=== PATIENT | female | born 1975 | race Two or more races ===

== ENCOUNTER → 2016-10-21 | Outpatient (REF) | payer OTHER ==
[~2016-10-21] MED LIST: /DULO30CA PO; /ESOM40CA PO; ACET50TA PO; ANUS2.5C2 TOP; ATIV1TAB10 PO; BACITAB3 PO; CELE-19 PO; DOCU10CA PO; DOCU10ELUD PO; FERR325T3 PO; FOLI1TAB2 PO; IBUP800T OR; IBUP80TA PO; LYRI150C PO; MACROBID PO; MAG-OX PO; MOM30SS PO; NEUR600T PO; NUPE1OIN2 TOP; OXAZ10CA PO; OXYC10TA12 PO; OXYIR PO; PAXI20TA3 PO; PERC5TAB8 PO; PRENTAB74 PO; PROM25TA PO; PROT1TAB2 PO; SIME180C PO; SUCR1TA PO; TYLE325T5 PO; VITA100T60 PO; VITAPRTA PO; ZOFR20TA PO; ZOFR4SOL PO; [UNRECOGNIZED DRUG - CODE] PO; elavil PO; multivitamin PO
== END ==
LOC: M SMT 17:15
PROVIDERS: ATTEND Nurse Practitioner Women's Health
DX: R30.0 Dysuria (principal)

== ENCOUNTER → 2016-10-29 | Outpatient (REF) | payer OTHER | LOC: M SMT 16:59 | PROVIDERS: ATTEND Nurse Practitioner Women's Health | DX: R30.0 Dysuria (principal) ==

== ENCOUNTER → 2017-01-18 | Outpatient (CLI) | payer OTHER ==
[~2017-01-18] MED LIST changes: +BACITAB PO; -BACITAB3 PO; +BACT800T5 PO; -CELE-19 PO; +CELE1CAP4 PO; +CIPR-249 PO; -FOLI1TAB2 PO; +FOLI1TAB4 PO; +IBUP-1114 PO; +NORCOTAB PO; -OXAZ10CA PO; +OXAZ10CA3 PO; +OXYC1TAB23 PO; +ZOFR4TAB3 PO
[2017-01-18 18:34] LABS: ANION GAP 3 MEQ/L (8-16); BLOOD UREA NITROGEN 11 MG/DL (7-18); CARBON DIOXIDE LEVEL 29 MEQ/L (21-32); CHLORIDE LEVEL 107 MEQ/L (98-107); CREATININE FOR GFR 0.74 MG/DL (0.55-1.02); GLOMERULAR FILTRATION RATE > 60.0 (>58); GLUCOSE, FASTING 86 MG/DL (70-105); POTASSIUM SERUM 4.7 MEQ/L (3.5-5.1); SODIUM LEVEL 139 MEQ/L (136-145)
[2017-01-18 18:43] LABS: CONTROL LINE UCG INT CTR LINE PRESENT
[2017-01-18 18:50] LABS: MEAN CORPUSCULAR HEMOGLOBIN 28.2 pg (27.0-33.0); MEAN CORPUSCULAR HGB CONC 31.5 g/dl (32.0-36.5); MEAN CORPUSCULAR VOLUME 89.4 fl (80.0-96.0); RED CELL DISTRIBUTION WIDTH 13.9 % (11.5-14.5); WHITE BLOOD COUNT 9.8 K/mm3 (4.0-10.0)
== END ==
LOC: M SMT 15:01
PROVIDERS: ATTEND Specialist
DX: Z01.818 Encounter for other preprocedural examination (principal); R30.0 Dysuria; N30.10 Interstitial cystitis (chronic) without hematuria

== ENCOUNTER 2017-01-29 06:07 | Day surgery (SDC) | payer OTHER ==
[~2017-01-29] VITALS: Ht 152.4 cm; Wt 59.0 kg
[~2017-01-29 06:07] MED LIST changes: -BACT800T5 PO; -CIPR-249 PO; -NORCOTAB PO; -OXYC1TAB23 PO; -ZOFR4TAB3 PO
[2017-01-29] MEDS ORDERED: LIDOCAINE 1% MDV 20ML VIAL SC ONE (06:15)
[2017-01-29] MEDS ORDERED: LR 1,000 ML IV ONE (06:15)
[2017-01-29 06:41] LABS: CONTROL LINE UCG INT CTR LINE PRESENT
[2017-01-29] MEDS ORDERED: LIDOCAINE 2% 5ML JELLY UROJET As Ordered ONE (07:09)
[2017-01-29] MEDS ORDERED: LIDOCAINE 1% SDV INJ 30 ML VIAL As Ordered ONE (07:50)
[2017-01-29] MEDS ORDERED: MIDAZOLAM INJ 2 MG/2 ML VIAL (J2250) As Ordered ONE (07:58)
[2017-01-29] MEDS ORDERED: dexameTHASONE 4 MG/ML 1ML VIAL (J1100) As Ordered ONE (07:58)
[2017-01-29] MEDS ORDERED: fentaNYL 100 MCG/2 ML INJECTION (J3010) As Ordered ONE ×3 (07:58→08:39)
[2017-01-29] MEDS ORDERED: LIDOCAINE 2% INJ 100 MG/5 ML SDV (FOR ANES.) As Ordered ONE (07:58)
[2017-01-29] MEDS ORDERED: ONDANSETRON 4MG/2ML VIAL (J2405) As Ordered ONE (07:58)
[2017-01-29] MEDS ORDERED: PROPOFOL 200 MG/20 ML VIAL As Ordered ONE (07:58)
[2017-01-29] MEDS ORDERED: BACT800T5 PO (08:26)
[2017-01-29] MEDS ORDERED: OXYC1TAB23 PO (08:26)
[2017-01-29] MEDS: fentaNYL 100 MCG/2 ML INJECTION (J3010) IV PRN ×3 (08:42→09:03)
[2017-01-29] MEDS ORDERED: LR 1,000 ML IV SCH (09:00)
[2017-01-29] MEDS ORDERED: PERCOCET 5MG/325MG TAB PO PRN (09:00)
[2017-01-29] MEDS ORDERED: ONDANSETRON 4MG/2ML VIAL (J2405) IV PRN (09:00)
--- NOTE | 2017-01-29 09:03 | RO ---
DATE OF PROCEDURE: 01/29/2017 PREOPERATIVE DIAGNOSIS: Dysuria and bladder pain. POSTOPERATIVE DIAGNOSIS: Dysuria and bladder pain. PROCEDURE: Cystoscopy, hydrodistention and random bladder biopsies. SURGEON: Sandra Currie MD PATCH SETTER: ANESTHESIA: General. MEDICATIONS: Ancef 2 grams preoperatively. SPECIMENS: Random bladder biopsies. HISTORY OF PRESENT ILLNESS: The patient is a 42-year-old female with a longstanding history of severe burning with urination and bladder discomfort, which has been happening episodically for the last 15 years. Every several months she will get a severe flare. She has discomfort in the urethra and lower abdomen all the time. A cystoscopy had been done in the office and showed significant hyperemia near the trigone. After discussing all different options, alternatives, risks, and benefits it was decided to bring her to the operating room for further therapeutic and diagnostic results. Informed consent was obtained in both verbal and written form. PROCEDURE: The patient was brought into the operating room. Ancef 2 grams preoperatively had been given and thromboembolic deterrent (CASA) stockings and sequential compression devices were in place. Anesthesia was induced. She was then placed in the lithotomy position and careful attention was paid that her pressure points were well padded and protected. Next, she was prepped and draped in the usual fashion. Because of her severe urethral pain, I started with a urethral dilation up to a #30-Syriac. Then, I placed a #22-Syriac cystoscope. The urethra was opened and I had no difficulty placing the dilators. Upon entering the bladder both ureteral orifices were seen. Again, there was significant hyperemia and even possibly some ulcerations on the trigone of the bladder and with a few areas of hyperemia right behind the trigone. The rest of the bladder was unremarkable. There was no significant erythematous patches, lesions or other significant abnormalities. At this point, the bladder was emptied and then distended under gravity drainage with sterile water. Her total bladder capacity under anesthesia was about 900 mL. After the bladder was left distended for 10 minutes, it was emptied. There were a few scattered glomerulations through the rest of the bladder, but the size of trigone and the rest of the bladder looked fairly normal. At this point, biopsies were taken of the abnormal areas on the trigone and then extensive fulguration was done of the trigone and erythematous areas and patches. The patient's bladder was emptied and a red rubber catheter was placed. 10 mL of 1% lidocaine with a lidocaine jelly slurry was then placed in the bladder for postoperative pain control. The patient was returned to the recovery room in stable condition.
[2017-01-29] MEDS ORDERED: BELLADONNA ALKALOIDS/OPIUM SUPP As Ordered ONE (09:40)
[2017-01-29] MEDS ORDERED: BELLADONNA ALKALOIDS/OPIUM SUPP PR ONE (10:00)
[2017-01-29 10:15] VITALS: BP 107/71
== END 2017-01-29 10:46 | disposition home or self-care (01) ==
LOC: M SDC 06:07
PROVIDERS: ATTEND Specialist
DX: R30.0 Dysuria (principal); N32.89 Other specified disorders of bladder; T88.59XD Other complications of anesthesia, subsequent encounter; K44.9 Diaphragmatic hernia without obstruction or gangrene; K21.9 Gastro-esophageal reflux disease without esophagitis; D64.9 Anemia, unspecified; M12.9 Arthropathy, unspecified; F41.9 Anxiety disorder, unspecified; G43.909 Migraine, unspecified, not intractable, without status migrainosus; Z72.0 Tobacco use
CPT/HCPCS: 52204; 84703; 88305; J0690; J1100; J2250; J2405; J3010

== ENCOUNTER 2017-01-29 19:36 | Emergency (ER) | payer OTHER ==
[~2017-01-29] VITALS: Ht 152.4 cm; Wt 59.1 kg
[~2017-01-29 19:36] MED LIST changes: +BACT800T5 PO; +OXYC1TAB23 PO
[2017-01-29] MEDS ORDERED: PERCOCET 5MG/325MG TAB PO ONE (21:00)
[2017-01-29 21:13] VITALS: BP 113/56
== END 2017-01-29 21:19 | disposition home or self-care (01) ==
LOC: M ED 19:36
DX: N39.0 Urinary tract infection, site not specified (principal); R39.89 Other symptoms and signs involving the genitourinary system; F17.210 Nicotine dependence, cigarettes, uncomplicated; Z79.899 Other long term (current) drug therapy

== ENCOUNTER → 2017-02-01 | Outpatient (REF) | payer OTHER ==
[~2017-02-01] MED LIST changes: +CIPR-249 PO; +NORCOTAB PO; +ZOFR4TAB3 PO
[2017-02-01 20:56] LABS: BACTERIA, URINE NONE SEEN; HYALINE CAST, URINE NONE SEEN /lpf (0-1); MICROSCOPIC EXAM PERFORMED; SQUAMOUS EPITHELIAL CELL URINE MOD AMOUNT /hpf (SMALL AMT)
== END ==
LOC: M SMT 16:56
PROVIDERS: ATTEND Specialist
DX: R39.82 Chronic bladder pain (principal); R33.9 Retention of urine, unspecified

== ENCOUNTER 2017-02-16 16:55 | Emergency (ER) | payer OTHER ==
[~2017-02-16] VITALS: Ht 152.4 cm; Wt 54.0 kg
[~2017-02-16 16:55] MED LIST changes: -CIPR-249 PO; -NORCOTAB PO; -ZOFR4TAB3 PO
[2017-02-16] MEDS ORDERED: KETOROLAC 30 MG/ML VIAL (J1885) IV ONE (17:30)
[2017-02-16] MEDS ORDERED: NS 1,000 ML IV ONE (17:30)
[2017-02-16] MEDS ORDERED: ONDANSETRON 4MG/2ML VIAL (J2405) IV ONE (17:30)
[2017-02-16 17:57] LABS: BASO # 0.1 10^3/uL (0.0-0.2); BASO % 0.6 % (0.0-1.0); EOS % 0.1 % (0.0-3.0); IMMATURE GRANULOCYTE % 0.5 % (0-0); LYMPH # 1.6 10^3/uL (1.5-4.5); LYMPH % 10.2 % (24.0-44.0); MEAN CORPUSCULAR HEMOGLOBIN 27.9 pg (27.0-33.0); MEAN CORPUSCULAR HGB CONC 34.5 g/dl (32.0-36.5); MEAN CORPUSCULAR VOLUME 80.8 fl (80.0-96.0); MONO # 0.7 10^3/uL (0.0-0.8); MONO % 4.8 % (0.0-5.0); NEUTROPHILS # 12.8 10^3/uL (1.8-7.7); NEUTROPHILS % 83.8 % (36.0-66.0); PLATELET COUNT, AUTOMATED 419 10^3/uL (150-450); RED CELL DISTRIBUTION WIDTH 14.4 % (11.5-14.5); WHITE BLOOD COUNT 15.3 10^3/uL (4.0-10.0)
[2017-02-16] MEDS: MORPHINE 4 MG/ML 1ML SYRINGE IV PRN ×2 (18:01→18:50)
[2017-02-16 18:08] LABS: INR 1.01
[2017-02-16 18:24] LABS: ALBUMIN 3.8 GM/DL (3.2-5.2); ALBUMIN/GLOBULIN RATIO 1.15 (1.00-1.93); ALKALINE PHOSPHATASE 75 U/L (45-117); ALT/SGPT 54 U/L (12-78); ANION GAP 15 MEQ/L (8-16); AST/SGOT 46 U/L (15-37); BILIRUBIN,DIRECT 0.1 MG/DL (0.0-0.2); BILIRUBIN,TOTAL 0.5 MG/DL (0.2-1.0); BLOOD UREA NITROGEN 15 MG/DL (7-18); CALCIUM LEVEL 9.7 MG/DL (8.5-10.1); CARBON DIOXIDE LEVEL 21 MEQ/L (21-32); CHLORIDE LEVEL 101 MEQ/L (98-107); CREATININE FOR GFR 0.69 MG/DL (0.55-1.02); GLOMERULAR FILTRATION RATE > 60.0 (>58); GLUCOSE, FASTING 126 MG/DL (70-105); POTASSIUM SERUM 3.4 MEQ/L (3.5-5.1); SODIUM LEVEL 137 MEQ/L (136-145); TOTAL PROTEIN 7.1 GM/DL (6.4-8.2)
[2017-02-16] MEDS ORDERED: CIPROFLOXACIN 400 MG in APPROPRIATE DILUENT 1 EA IV ONE (18:45)
--- NOTE | 2017-02-16 19:20 | REPUSA ---
CT of the abdomen and pelvis with contrast Clinical statement: pancreatitis. Technique: Multiple axial CT images were obtained from the base of the lungs through the floor of the pelvis utilizing 5 mm axial slices after administration of nonionic intravenous contrast. Coronal an d sagittal reconstructions were also obtained. Comparison: 02/07/2014. Findings: Chest: The visualized lung bases are clear. Abdomen: The spleen, pancreas, kidneys, and adrenal glands are unremarkable there is diffuse low atte nuation of the hepatic parenchyma. The aorta is within normal limits. There is no evidence of abdomin al lymphadenopathy or ascites. Pelvis: The bowel is unremarkable, with no obstructive or inflammatory changes. The appendix is orlando l. The urinary bladder is within normal limits. The IUD is in place within the uterus. There is a sma ll low attenuation lesion in the right ovary, measuring 2.0 x 1.5 cm. There is no evidence of pelvic lymphadenopathy or ascites. Bones: There are no suspicious osseous abnormalities seen. Impression: 1. No evidence of pancreatitis. Pancreas appears grossly unremarkable. 2. Diffuse fatty infiltration of the liver. 3. No obstructive or inflammatory bowel changes. 4. Simple right ovarian cyst. 5.. IUD is in place within the uterus.
[2017-02-16] MEDS ORDERED: ZOFR4TAB3 PO (19:27)
[2017-02-16] MEDS ORDERED: CIPR-249 PO (19:27)
[2017-02-16] MEDS ORDERED: NORCOTAB PO (19:27)
[2017-02-16] MEDS ORDERED: LORazepam 2 MG/ML VIAL (J2060) IV STA (19:32)
[2017-02-16 20:42] VITALS: BP 138/87
== END 2017-02-16 20:44 | disposition home or self-care (01) ==
LOC: M ED 16:55
DX: F41.9 Anxiety disorder, unspecified (principal)
CPT/HCPCS: 74177; 80048; 80076; 81001; 83690; 85025; 85610; 87088; 87186; 96365; 96375; 96376; 99283; G0480; J0744; J1885; J2060; J2405

== ENCOUNTER → 2017-02-25 | Outpatient (REF) | payer OTHER ==
[~2017-02-25] MED LIST changes: +CIPR-249 PO; +NORCOTAB PO; +ZOFR4TAB3 PO
[2017-02-25 18:17] LABS: BACTERIA, URINE NONE SEEN; HYALINE CAST, URINE NONE SEEN /lpf (0-1); RBC, URINE NONE SEEN /hpf (0-3); SQUAMOUS EPITHELIAL CELL URINE SMALL AMOUNT /hpf (SMALL AMT); WBC, URINE 0-1 /hpf (0-3)
[2017-02-25 18:18] LABS: MICROSCOPIC EXAM PERFORMED
== END ==
LOC: M SMT 17:03
PROVIDERS: ATTEND Specialist
DX: N30.10 Interstitial cystitis (chronic) without hematuria (principal)

== ENCOUNTER → 2020-03-22 | Outpatient (REF) | payer OTHER ==
[~2020-03-22] MED LIST changes: -/DULO30CA PO; -/ESOM40CA PO; -ACET50TA PO; +CYMB1CAP5 PO; -DOCU10ELUD PO; +DOCU5LIQ PO; +FOLI1TAB11 PO; -FOLI1TAB4 PO; +HYDR-3715 PO; +MAPA500T2 PO; +NEXI1CAP3 PO; -NORCOTAB PO; +PROM-190 PO; -PROM25TA PO; -ZOFR20TA PO; +ZOFR4TAB14 PO; +ZOFR4TAB16 PO; -ZOFR4TAB3 PO
== END ==
LOC: M SMT 13:02
PROVIDERS: ATTEND Urology
DX: N30.10 Interstitial cystitis (chronic) without hematuria (principal)

== ENCOUNTER → 2020-04-19 | Outpatient (REF) | payer OTHER ==
[2020-04-19 19:37] LABS: BACTERIA, URINE AUTO NEGATIVE (NEGATIVE); RBC, URINE AUTO 1 /HPF (0-3); SQUAMOUS EPITHELIAL CELL UR AU 1 /HPF (0-6); WBC, URINE AUTO 0 /HPF (0-3)
== END ==
LOC: M SMT 16:42
PROVIDERS: ATTEND Specialist
DX: Z87.440 Personal history of urinary (tract) infections (principal)
CPT/HCPCS: 81015; 87086; G0463

== ENCOUNTER 2020-11-01 15:22 | Emergency (ER) | payer OTHER ==
[~2020-11-01] VITALS: Ht 152.4 cm; Wt 56.7 kg
[~2020-11-01 15:22] MED LIST changes: -SIME180C PO; +SIME180C25 PO
[2020-11-01] MEDS ORDERED: SUMA50TA2 PO (15:28)
[2020-11-01] MEDS ORDERED: ONDANSETRON 4MG/2ML VIAL IV ONE (16:40)
[2020-11-01] MEDS ORDERED: KETOROLAC 30 MG/ML 1ML VIAL IV ONE (16:40)
--- NOTE | 2020-11-01 17:28 | REP ---
INDICATION: severe pelvic pain, has IUD COMPARISON: None. TECHNIQUE: Transabdominal pelvic ultrasound followed by transvaginal examination for better evaluation of the endometrium and adnexa with color Doppler evaluation of the ovaries. FINDINGS: Bladder is empty. Normal anteverted uterus measures 9.0 x 5.9 x 6.3. The endometrial complex measures 5.4 mm thickness. IUD in satisfactory central position. Bilateral ovaries are normal in appearance and vascularity without evidence for torsion. Right ovary measures 2.4 x 1.7 x 2.0 cm; R I = 0.48. Left ovary measures 2.7 x 2.1 x 1.8 cm; R I = 0.65. No pelvic fluid or adnexal mass lesion IMPRESSION: Normal pelvic ultrasound. IUD in central satisfactory position. <Electronically signed by Narendra Lees > 11/01/20 [id number]
[2020-11-01 17:29] LABS: BASO # 0.1 10^3/uL (0.0-0.2); BASO % 0.8 % (0.0-1.0); EOS % 0.1 % (0.0-3.0); HEMATOCRIT 33.4 % (36.0-47.0); HEMOGLOBIN 10.3 g/dl (12.0-15.5); LYMPH # 2.1 10^3/uL (1.5-5.0); MEAN CORPUSCULAR HEMOGLOBIN 26.2 pg (27.0-33.0); MEAN CORPUSCULAR HGB CONC 30.8 g/dl (32.0-36.5); MONO # 0.7 10^3/uL (0.0-0.8); MONO % 6.4 % (2.0-8.0); NEUTROPHILS # 7.3 10^3/uL (1.5-8.5); NEUTROPHILS % 71.4 % (36.0-66.0); PLATELET COUNT, AUTOMATED 361 10^3/uL (150-450); RED BLOOD COUNT 3.93 10^6/uL (4.00-5.40); WHITE BLOOD COUNT 10.2 10^3/uL (4.0-10.0)
[2020-11-01 17:54] LABS: ALBUMIN 3.9 GM/DL (3.2-5.2); ALT/SGPT 20 U/L (12-78); BILIRUBIN,DIRECT < 0.1 MG/DL (0.0-0.2); BILIRUBIN,TOTAL 0.2 MG/DL (0.2-1.0); LIPASE 68 U/L (73-393); TOTAL PROTEIN 7.1 GM/DL (6.4-8.2)
[2020-11-01] MEDS ORDERED: diphenhydrAMINE 50MG/ML VIAL (J1200) IV STA (18:18)
[2020-11-01] MEDS ORDERED: MORPHINE 4 MG/ML 1ML VIAL/SYRINGE (J2270) IV ONE (18:20)
[2020-11-01] MEDS ORDERED: HYDR-3713 PO (19:41)
[2020-11-01] MEDS ORDERED: NORCO 5/325MG TABLET (BULK FOR ED) PO ONE (20:10)
[2020-11-01 20:39] VITALS: BP 118/80
== END 2020-11-01 20:40 | disposition home or self-care (01) ==
LOC: M ED 15:22
DX: R10.2 Pelvic and perineal pain (principal); R51.9 Headache, unspecified; K21.9 Gastro-esophageal reflux disease without esophagitis; F17.200 Nicotine dependence, unspecified, uncomplicated; Z97.5 Presence of (intrauterine) contraceptive device
CPT/HCPCS: 76830; 76856; 80047; 80076; 81001; 83690; 84702; 85025; 87086; 93976; 96374; 96375; 99284; J1200; J1885; J2270; J2405

== ENCOUNTER 2020-11-20 10:08 | Day surgery (SDC) | payer OTHER ==
[~2020-11-20] VITALS: Ht 152.4 cm; Wt 61.4 kg
[~2020-11-20 10:08] MED LIST changes: +ACETAMINOPHEN 650 MG SUPP PR ONE; +HYDR-3713 PO; +LR 1,000 ML IV ONE; +SERT50TA29 PO; +SUMA50TA2 PO; +ZOLP5TAB PO
[2020-11-20] MEDS ORDERED: CHLO125TA PO (10:37)
[2020-11-20 10:49] LABS: HEMOGLOBIN 11.1 g/dl (12.0-15.5); MEAN CORPUSCULAR HEMOGLOBIN 26.6 pg (27.0-33.0); MEAN CORPUSCULAR HGB CONC 31.7 g/dl (32.0-36.5); MEAN CORPUSCULAR VOLUME 83.9 fl (80.0-96.0); PLATELET COUNT, AUTOMATED 374 10^3/uL (150-450); RED BLOOD COUNT 4.17 10^6/uL (4.00-5.40); WHITE BLOOD COUNT 9.6 10^3/uL (4.0-10.0)
[2020-11-20] MEDS ORDERED: SCOPOLAMINE 1MG TRANSDERMAL PATCH TOP ONE (10:50)
[2020-11-20 11:22] LABS: HCG, SERUM QUALITATIVE NEGATIVE (NEGATIVE)
[2020-11-20 11:23] LABS: ALT/SGPT 20 U/L (12-78); BILIRUBIN,TOTAL 0.5 MG/DL (0.2-1.0); BLOOD UREA NITROGEN 17 MG/DL (7-18); CALCIUM LEVEL 9.9 MG/DL (8.5-10.1); CARBON DIOXIDE LEVEL 32 MEQ/L (21-32); CHLORIDE LEVEL 105 MEQ/L (98-107); CREATININE FOR GFR 0.81 MG/DL (0.55-1.30); GLOMERULAR FILTRATION RATE > 60.0 (>58); GLUCOSE, FASTING 92 MG/DL (70-100); POTASSIUM SERUM 3.7 MEQ/L (3.5-5.1); SODIUM LEVEL 138 MEQ/L (136-145); TOTAL PROTEIN 7.4 GM/DL (6.4-8.2)
[2020-11-20] MEDS ORDERED: ACETAMINOPHEN 650 MG SUPP As Ordered ONE (12:15)
[2020-11-20] MEDS ORDERED: BUPIVACAINE HCL 0.5% 10ML VIAL As Ordered ONE (12:16)
[2020-11-20] MEDS ORDERED: METOCLOPRAMIDE INJ 10MG/2ML VIAL (J2765 PER 1) As Ordered ONE (12:52)
[2020-11-20] MEDS ORDERED: MIDAZOLAM INJ 2MG/2ML VIAL (J2250 PER 1MG) As Ordered ONE (12:52)
[2020-11-20] MEDS ORDERED: ROCURONIUM BROMIDE 50 MG/5 ML VIAL As Ordered ONE (12:52)
[2020-11-20] MEDS ORDERED: ACETAMINOPHEN 1000MG 100ML IV BTL (OFIRMEV) (J0131 PER 10MG) As Ordered ONE (12:52)
[2020-11-20] MEDS ORDERED: LIDOCAINE 2% 100MG/5ML SDV (FOR ANES.) As Ordered ONE (12:52)
[2020-11-20] MEDS ORDERED: KETOROLAC 60MG 2ML VIAL As Ordered ONE (12:52)
[2020-11-20] MEDS ORDERED: ONDANSETRON 4MG/2ML VIAL As Ordered ONE (12:52)
[2020-11-20] MEDS ORDERED: dexameTHASONE 4 MG/ML 1ML VIAL (J1100 PER 1MG) As Ordered ONE (12:52)
[2020-11-20] MEDS ORDERED: fentaNYL 250 MCG/5 ML INJECTION (J3010) As Ordered ONE (12:52)
[2020-11-20] MEDS ORDERED: propofoL 200 MG/20 ML VIAL As Ordered ONE (12:52)
[2020-11-20] MEDS ORDERED: SUGAMMADEX SODIUM 500 MG/5 ML VIAL (BRIDION) As Ordered ONE (12:52)
[2020-11-20] MEDS ORDERED: fentaNYL 100 MCG/2 ML INJECTION (J3010) As Ordered ONE (14:32)
[2020-11-20] MEDS: fentaNYL 100 MCG/2 ML INJECTION (J3010) IV PRN ×3 (14:36→15:49)
[2020-11-20] MEDS ORDERED: oxyCODONE 5MG TAB PO PRN (15:00)
[2020-11-20] MEDS ORDERED: LR 1,000 ML IV SCH (15:00)
[2020-11-20] MEDS ORDERED: ONDANSETRON 4MG/2ML VIAL IV PRN (15:00)
[2020-11-20] MEDS: HYDROMORPHONE HCL 0.5 MG/ 0.5 ML SYRINGE (J1170 PER 1) IV PRN ×4 (15:03→15:25)
[2020-11-20 16:55] VITALS: BP 92/54
--- NOTE | 2020-12-08 17:44 | RO ---
OPERATIVE NOTE DATE OF OPERATION: 11/20/2020 PREOPERATIVE DIAGNOSIS: Voluntary permanent fertility control, failed medical therapy for abnormal uterine bleeding. POSTOPERATIVE DIAGNOSIS: Voluntary permanent fertility control, failed medical therapy for abnormal uterine bleeding. OPERATION PROPOSED: Pap smear, operative laparoscopy, bilateral salpingectomy hysteroscopy, D&C, Pap smear and removal of IUCD and endometrial NovaSure ablation. OPERATION PERFORMED: Pap smear, operative laparoscopy, bilateral salpingectomy, hysteroscopy, removal of IUCD, endometrial NovaSure ablation and D&C. SURGEON: Beka Truong MD ARCHITECTURAL WOOD MODEL MAKER: Estevan Clifton, for extraction, retraction and visualization, otherwise the procedure could not be completed. ANESTHESIA: General plus local anesthetic for intraperitoneal procedures. ESTIMATED BLOOD LOSS: Less than 25 mL DESCRIPTION OF PROCEDURE: After adequate timeout, prepped and draped in the lithotomy position, Keith catheter in the bladder draining clear urine, acetaminophen suppository 1300 mg per rectum. Sequentials in place, antibiotics not required, a weighted speculum in the vagina, a single-tooth tenaculum on the anterior lip of the cervix. The IUCD strings were available. Initially we did the Pap smear and then we pulled the IUCD strings. A uterine manipulator was placed in the endocervical canal, reprepping and draping. A small subumbilical incision was made, direct entry into the abdomen with a 3 mm scope, had no evidence of hemorrhage, perforation or bleeding. Panoramic review: Right upper quadrant was normal. Left upper quadrant was normal. Uterus was anteverted, anteflexed. Both tubes were visualized to the fimbriated end, no hernias in the inguinal canal. The posterior cul-de-sac was clear. The uterus was mobile. A 5 mm port was placed on either side lower down and then with the LigaSure, the right tube was removed right to the cornual end. Hemostasis was secured. The tube was sent off to pathology. Then a similar procedure was done on the left side and that tube was also removed and sent off to pathology. Good hemostasis was secured. We irrigated out the abdomen, no evidence of active bleeding. We then went ahead and with a weighted speculum in the vagina, a single-tooth tenaculum on the anterior lip of the cervix, the uterus was sounded to a length of 6, width of 4.5, curettage of the cavity and the specimen was sent off to pathology. Last period was October 28, 2020. The cervix was dilated up and the ablation scope placed in the cavity. We had 132 pham, 6 length, 4.5 width and the time for execution of procedure was one minute and 35 seconds. With instrument and pad count, the NovaSure unit was removed. Hysteroscopic evaluation showed good burn, anterior, posterior and lateral bhandari right up to the cornua. No evidence of active bleeding was noted, 150 mL of saline in, 150 mL out. The uterus was placed in anatomical position. The Keith catheter was removed. The uterine elevator was removed as was the tenaculum and the patient was sent to recovery in good condition. Alejandra Wilson OB
== END 2020-11-20 17:05 | disposition home or self-care (01) ==
LOC: M SDC 10:08
PROVIDERS: ATTEND Obstetrics & Gynecology
DX: Z30.2 Encounter for sterilization (principal); N93.9 Abnormal uterine and vaginal bleeding, unspecified; F17.210 Nicotine dependence, cigarettes, uncomplicated; F41.9 Anxiety disorder, unspecified; G43.909 Migraine, unspecified, not intractable, without status migrainosus; K21.9 Gastro-esophageal reflux disease without esophagitis; K44.9 Diaphragmatic hernia without obstruction or gangrene; K76.0 Fatty (change of) liver, not elsewhere classified; M19.90 Unspecified osteoarthritis, unspecified site; R06.83 Snoring; Z79.899 Other long term (current) drug therapy
CPT/HCPCS: 36415; 58301; 58563; 58661; 80053; 84703; 85027; 88300; 88302; 88305; G0123; J0131; J1100; J1170; J1885; J2250; J2405; J2765; J3010

== ENCOUNTER → 2021-03-14 | Outpatient (CLI) | payer OTHER ==
[~2021-03-14] MED LIST changes: -ACETAMINOPHEN 650 MG SUPP PR ONE; +CHLO125TA PO; -LR 1,000 ML IV ONE
[2021-03-14 17:46] LABS: APPEARANCE, URINE HAZY (CLEAR); BACTERIA, URINE AUTO 1+ (NEGATIVE); BILIRUBIN, URINE AUTO NEGATIVE (NEGATIVE); BLOOD, URINE BLOOD 2+ (NEGATIVE); COLOR, URINE AMBER (YELLOW); GLUCOSE, URINE (UA) AUTO NEGATIVE (NEGATIVE); KETONE, URINE AUTO NEGATIVE (NEGATIVE); LEUKOCYTE ESTERASE, URINE AUTO 2+ (NEGATIVE); NITRITE, URINE AUTO POSITIVE (NEGATIVE); PROTEIN, URINE AUTO NEGATIVE (NEGATIVE); RBC, URINE AUTO 21 /HPF (0-3); SPECIFIC GRAVITY URINE AUTO 1.008 (1.002-1.035); SQUAMOUS EPITHELIAL CELL UR AU 6 /HPF (0-6); WBC, URINE AUTO TNTC /HPF (0-3)
== END ==
LOC: M LAB 16:53
PROVIDERS: ATTEND Nurse Practitioner Women's Health
DX: N39.0 Urinary tract infection, site not specified (principal)

== ENCOUNTER → 2021-06-05 | Outpatient (REF) | payer OTHER ==
[~2021-06-05] MED LIST changes: +PENT10CA
[2021-06-05 17:36] LABS: HEMOGLOBIN 10.9 g/dl (12.0-15.5); MEAN CORPUSCULAR HEMOGLOBIN 29.5 pg (27.0-33.0); MEAN CORPUSCULAR HGB CONC 31.1 g/dl (32.0-36.5); MEAN CORPUSCULAR VOLUME 94.9 fl (80.0-96.0); PLATELET COUNT, AUTOMATED 300 10^3/uL (150-450); RED BLOOD COUNT 3.69 10^6/uL (4.00-5.40); WHITE BLOOD COUNT 7.4 10^3/uL (4.0-10.0)
[2021-06-05 17:55] LABS: CREATININE FOR GFR 1.13 MG/DL (0.55-1.30); GLOMERULAR FILTRATION RATE 55.7 (>58); POTASSIUM SERUM 4.3 MEQ/L (3.5-5.1)
== END ==
LOC: M LABSMT 16:48
PROVIDERS: ATTEND Specialist
DX: N30.10 Interstitial cystitis (chronic) without hematuria (principal)
CPT/HCPCS: 51701; 80048; 85027; G0463

== ENCOUNTER 2021-06-06 13:46 | Day surgery (SDC) | payer OTHER ==
[~2021-06-06] VITALS: Ht 152.4 cm; Wt 65.8 kg
[~2021-06-06 13:46] MED LIST changes: +LIDOCAINE 2% 5ML JELLY UROJET As Ordered ONE; -PENT10CA
[2021-06-06] MEDS ORDERED: ceFAZolin SOD 2 GM in IV 1 EA IV ONE (14:00)
[2021-06-06] MEDS ORDERED: PENT10CA (14:09)
[2021-06-06] MEDS ORDERED: ONDANSETRON 4MG/2ML VIAL As Ordered ONE (14:47)
[2021-06-06] MEDS ORDERED: fentaNYL 100 MCG/2 ML INJECTION (J3010) As Ordered ONE (14:47)
[2021-06-06] MEDS ORDERED: ACETAMINOPHEN 1000MG 100ML IV BTL (OFIRMEV) (J0131 PER 10MG) As Ordered ONE (14:47)
[2021-06-06] MEDS ORDERED: LIDOCAINE 2% 100MG/5ML SDV (FOR ANES.) As Ordered ONE (14:47)
[2021-06-06] MEDS ORDERED: propofoL 200 MG/20 ML VIAL As Ordered ONE ×2 (14:47→14:52)
[2021-06-06] MEDS ORDERED: dexameTHASONE 4 MG/ML 1ML VIAL (J1100 PER 1MG) As Ordered ONE (14:47)
[2021-06-06] MEDS ORDERED: MIDAZOLAM INJ 2MG/2ML VIAL (J2250 PER 1MG) As Ordered ONE (14:47)
[2021-06-06] MEDS ORDERED: LIDOCAINE 2% 5ML JELLY UROJET As Ordered ONE (14:54)
[2021-06-06] MEDS ORDERED: LIDOCAINE 1% MDV 50ML VIAL As Ordered ONE (14:54)
[2021-06-06] MEDS ORDERED: METOCLOPRAMIDE INJ 10MG/2ML VIAL (J2765 PER 1) As Ordered ONE (14:56)
[2021-06-06] MEDS ORDERED: KETOROLAC 30 MG/ML 1ML VIAL As Ordered ONE (15:59)
[2021-06-06] MEDS ORDERED: fentaNYL 100 MCG/2 ML INJECTION (J3010) IV PRN (16:05)
[2021-06-06] MEDS ORDERED: ONDANSETRON 4MG/2ML VIAL IV PRN (16:05)
[2021-06-06] MEDS ORDERED: oxyCODONE 5MG TAB PO PRN (16:05)
[2021-06-06] MEDS ORDERED: LR 1,000 ML IV SCH (16:05)
[2021-06-06] MEDS ORDERED: KETOROLAC 30 MG/ML 1ML VIAL IV PRN (16:05)
[2021-06-06 16:55] VITALS: BP 104/65
== END 2021-06-06 17:12 | disposition home or self-care (01) ==
LOC: M SDC 13:46
PROVIDERS: ATTEND Specialist
DX: N30.10 Interstitial cystitis (chronic) without hematuria (principal); N03.9 Chronic nephritic syndrome with unspecified morphologic changes; N32.89 Other specified disorders of bladder; R10.30 Lower abdominal pain, unspecified; R30.9 Painful micturition, unspecified; K21.9 Gastro-esophageal reflux disease without esophagitis; M19.90 Unspecified osteoarthritis, unspecified site; M51.36 Other intervertebral disc degeneration, lumbar region; G43.909 Migraine, unspecified, not intractable, without status migrainosus; G47.00 Insomnia, unspecified; F17.210 Nicotine dependence, cigarettes, uncomplicated; Z79.899 Other long term (current) drug therapy; Z79.2 Long term (current) use of antibiotics
CPT/HCPCS: 52224; 52265; J0131; J0690; J1100; J1885; J2250; J2405; J2765; J3010

== ENCOUNTER → 2021-11-03 | Outpatient (CLI) | payer OTHER ==
[~2021-11-03] MED LIST changes: -LIDOCAINE 2% 5ML JELLY UROJET As Ordered ONE; +PENT10CA
== END ==
LOC: M WHC 08:35
PROVIDERS: ATTEND Family Medicine
DX: Z12.31 Encounter for screening mammogram for malignant neoplasm of breast (principal)

== ENCOUNTER → 2024-02-28 | Outpatient (CLI) | payer OTHER ==
[~2024-02-28] MED LIST changes: -SIME180C25 PO; +SIME1CAP4 PO
== END ==
LOC: M PLAIMG 14:23
PROVIDERS: ATTEND Family Medicine
DX: R60.1 Generalized edema (principal)

== ENCOUNTER 2024-03-27 12:41 | Emergency (ER) | payer OTHER ==
[~2024-03-27] VITALS: Ht 152.4 cm; Wt 65.0 kg
[2024-03-27 13:57] LABS: BASO # 0.1 10^3/uL (0.0-0.2); BASO % 0.4 % (0.0-1.0); HEMATOCRIT 40.2 % (36.0-47.0); HEMOGLOBIN 12.9 g/dl (12.0-15.5); LYMPH # 2.8 10^3/uL (1.5-5.0); LYMPH % 24.3 % (24.0-44.0); MEAN CORPUSCULAR HGB CONC 32.1 g/dl (32.0-36.5); MEAN CORPUSCULAR VOLUME 87.4 fl (80.0-96.0); MONO # 0.6 10^3/uL (0.0-0.8); MONO % 5.1 % (2.0-8.0); NEUTROPHILS % 69.9 % (36.0-66.0); PLATELET COUNT, AUTOMATED 402 10^3/uL (150-450); WHITE BLOOD COUNT 11.4 10^3/uL (4.0-10.0)
[2024-03-27 15:09] LABS: CK-MB VALUE MASS < 1.0 NG/ML (<3.6)
[2024-03-27 15:11] LABS: CPK CREATINE PHOSPHOKINASE 31 U/L (34-145); MB/CK RELATIVE INDEX 3.22 (< OR =4)
[2024-03-27 15:12] LABS: ALBUMIN 3.8 G/DL (3.2-5.2); ALKALINE PHOSPHATASE 74 U/L (35-104); ALT/SGPT 15 U/L (7.0-40); AST/SGOT 8 U/L (<34); BILIRUBIN,DIRECT 0.2 MG/DL (<0.4); BILIRUBIN,TOTAL 0.4 MG/DL (0.3-1.2); BLOOD UREA NITROGEN 11 MG/DL (9-23); CARBON DIOXIDE LEVEL 24 MMOL/L (20-31); CHLORIDE LEVEL 110 MMOL/L (98-107); CREATININE FOR GFR 0.63 MG/DL (0.55-1.30); GLOMERULAR FILTRATION RATE > 60.0 (>58); GLUCOSE, FASTING 105 MG/DL (60-100); POTASSIUM SERUM 4.4 MMOL/L (3.5-5.1); SODIUM LEVEL 142 MMOL/L (136-145)
[2024-03-27 15:13] LABS: THYROXINE (T4) 5.8 UG/DL (4.5-10.9)
[2024-03-27 15:14] LABS: THYROID STIMULATING HORMONE 0.544 uIU/ML (0.55-4.78)
[2024-03-27] MEDS ORDERED: ISOVUE-370 76% 100ML VIAL As Ordered ONE (16:30)
[2024-03-27 16:31] LABS: CK-MB VALUE MASS < 1.0 NG/ML (<3.6)
[2024-03-27 16:34] LABS: CPK CREATINE PHOSPHOKINASE 30 U/L (34-145); MB/CK RELATIVE INDEX 3.33 (< OR =4)
[2024-03-27 17:41] VITALS: BP 134/91; TEMP 98; O2SAT 100
== END 2024-03-27 17:43 | disposition home or self-care (01) ==
LOC: M ED 12:41
DX: K21.00 Gastro-esophageal reflux disease with esophagitis, without bleeding (principal); M94.0 Chondrocostal junction syndrome [Tietze]; R94.31 Abnormal electrocardiogram [ECG] [EKG]; F17.210 Nicotine dependence, cigarettes, uncomplicated; Z79.899 Other long term (current) drug therapy
CPT/HCPCS: 36415; 71046; 71275; 80048; 80076; 82550; 82553; 83605; 83880; 84436; 84443; 84484; 85025; 87486; 87581; 87633; 87798; 93005; 99284; Q9967

== ENCOUNTER → 2024-06-26 | Outpatient (REF) | payer OTHER ==
[2024-06-26 18:15] LABS: APPEARANCE, URINE CLOUDY (CLEAR); BACTERIA, URINE AUTO 1+ (NEGATIVE); BILIRUBIN, URINE AUTO NEGATIVE (NEGATIVE); BLOOD, URINE BLOOD 1+ (NEGATIVE); COLOR, URINE AMBER (YELLOW); GLUCOSE, URINE (UA) AUTO NEGATIVE (NEGATIVE); KETONE, URINE AUTO TRACE mg/dL (NEGATIVE); LEUKOCYTE ESTERASE, URINE AUTO 2+ (NEGATIVE); MUCUS, URINE SMALL (NEGATIVE); NITRITE, URINE AUTO POSITIVE (NEGATIVE); PROTEIN, URINE AUTO 1+ mg/dL (NEGATIVE); RBC, URINE AUTO 21 /HPF (0-3); SPECIFIC GRAVITY URINE AUTO 1.014 (1.002-1.035); SQUAMOUS EPITHELIAL CELL UR AU 0 /HPF (0-6); WBC, URINE AUTO TNTC /HPF (0-3)
== END ==
LOC: M SMT 17:07
PROVIDERS: ATTEND Specialist
DX: Z87.440 Personal history of urinary (tract) infections (principal)

== ENCOUNTER → 2024-06-28 | Outpatient (REF) | payer OTHER ==
[2024-06-28 18:15] LABS: APPEARANCE, URINE MANUAL HAZY (CLEAR); BILIRUBIN, URINE MANUAL NEGATIVE (NEGATIVE); BLOOD URINE MANUAL POSITIVE (NEGATIVE); COLOR, URINE MANUAL YELLOW (YELLOW); GLUCOSE, URINE (UA) MANUAL NEGATIVE (NEGATIVE); KETONE, URINE MANUAL NEGATIVE (NEGATIVE); LEUKOCYTE ESTERASE, URINE MAN NEGATIVE (NEGATIVE); NITRITE, URINE MANUAL NEGATIVE (NEGATIVE); PROTEIN, URINE MANUAL NEGATIVE (NEGATIVE); UROBILINOGEN, URINE MANUAL NORMAL (NORMAL)
[2024-06-28 18:34] LABS: WBC, URINE NONE SEEN /hpf (0-3)
[2024-06-28 18:35] LABS: BACTERIA, URINE NONE SEEN; HYALINE CAST, URINE NONE SEEN /lpf (0-1); RBC, URINE NONE SEEN /hpf (0-3); SQUAMOUS EPITHELIAL CELL URINE SMALL AMOUNT /hpf (SMALL AMT)
== END ==
LOC: M SMT 16:49
PROVIDERS: ATTEND Specialist
DX: Z87.440 Personal history of urinary (tract) infections (principal)

== ENCOUNTER 2024-07-16 15:34 | Emergency (ER) | payer OTHER ==
[~2024-07-16] VITALS: Ht 152.4 cm; Wt 53.8 kg
[~2024-07-16 15:34] MED LIST changes: -PENT10CA; +PENT10CA PO
[2024-07-16 16:13] VITALS: BP 161/104; TEMP 96.9; O2SAT 95
[2024-07-16] MEDS: NS (Normal Saline) 0.9% 1,000 ML IV ONE (17:27)
[2024-07-16] MEDS: ONDANSETRON 4MG 2ML VIAL IV STA (17:27)
[2024-07-16 17:42] LABS: BASO # 0.1 10^3/uL (0.0-0.2); BASO % 0.8 % (0.0-1.0); HEMATOCRIT 44.8 % (36.0-47.0); LYMPH # 2.6 10^3/uL (1.5-5.0); LYMPH % 30.6 % (24.0-44.0); MEAN CORPUSCULAR HEMOGLOBIN 29.1 pg (27.0-33.0); MEAN CORPUSCULAR HGB CONC 33.5 g/dl (32.0-36.5); MEAN CORPUSCULAR VOLUME 86.8 fl (80.0-96.0); MONO # 0.4 10^3/uL (0.0-0.8); MONO % 4.4 % (2.0-8.0); NEUTROPHILS # 5.5 10^3/uL (1.5-8.5); NEUTROPHILS % 63.7 % (36.0-66.0); PLATELET COUNT, AUTOMATED 320 10^3/uL (150-450); RED BLOOD COUNT 5.16 10^6/uL (4.00-5.40); WHITE BLOOD COUNT 8.6 10^3/uL (4.0-10.0)
[2024-07-16] MEDS ORDERED: ONDA-282 PO (17:45)
[2024-07-16 18:01] LABS: LIPASE 38 U/L (12-53)
[2024-07-16 18:02] LABS: HCG, SERUM QUALITATIVE NEGATIVE (NEGATIVE)
[2024-07-16 18:06] LABS: ALBUMIN 3.8 G/DL (3.2-5.2); ALKALINE PHOSPHATASE 108 U/L (35-104); ALT/SGPT 116 U/L (7.0-40); AST/SGOT 157 U/L (<34); BILIRUBIN,DIRECT 0.3 MG/DL (<0.4); BILIRUBIN,TOTAL 0.7 MG/DL (0.3-1.2); BLOOD UREA NITROGEN 16 MG/DL (9-23); CALCIUM LEVEL 9.6 MG/DL (8.5-10.1); CARBON DIOXIDE LEVEL 23 MMOL/L (20-31); CHLORIDE LEVEL 103 MMOL/L (98-107); CREATININE FOR GFR 0.56 MG/DL (0.55-1.30); GLOMERULAR FILTRATION RATE > 60.0 (>58); GLUCOSE, FASTING 99 MG/DL (60-100); POTASSIUM SERUM 3.9 MMOL/L (3.5-5.1); SODIUM LEVEL 144 MMOL/L (136-145); TOTAL PROTEIN 7.2 G/DL (5.7-8.2)
[2024-07-16] MEDS: ONDANSETRON 4MG 2ML VIAL IV ONE (20:38)
== END 2024-07-16 20:46 | disposition home or self-care (01) ==
LOC: M ED 15:34 → EDBD 15:34 → M ED 20:46
DX: R11.2 Nausea with vomiting, unspecified (principal); E11.9 Type 2 diabetes mellitus without complications; F17.210 Nicotine dependence, cigarettes, uncomplicated; Z79.899 Other long term (current) drug therapy
CPT/HCPCS: 76705; 80048; 80076; 83690; 84703; 85025; 96374; 96375; 99284; J2405

== ENCOUNTER 2024-07-18 06:37 | Inpatient (IN) | payer OTHER ==
[~2024-07-18] VITALS: Ht 152.4 cm; Wt 56.5 kg
[~2024-07-18 06:37] MED LIST changes: +ONDA-282 PO
[2024-07-18 07:41] LABS: BASO # 0.1 10^3/uL (0.0-0.2); BASO % 0.7 % (0.0-1.0); EOS % 0.1 % (0.0-3.0); MEAN CORPUSCULAR HEMOGLOBIN 29.6 pg (27.0-33.0); MEAN CORPUSCULAR HGB CONC 34.2 g/dl (32.0-36.5); MEAN CORPUSCULAR VOLUME 86.5 fl (80.0-96.0); MONO # 0.6 10^3/uL (0.0-0.8); MONO % 5.3 % (2.0-8.0); NEUTROPHILS % 74.3 % (36.0-66.0); PLATELET COUNT, AUTOMATED 247 10^3/uL (150-450); RED BLOOD COUNT 4.36 10^6/uL (4.00-5.40); WHITE BLOOD COUNT 10.7 10^3/uL (4.0-10.0)
[2024-07-18 07:42] LABS: HEMATOCRIT 37.7 % (36.0-47.0); HEMOGLOBIN 12.9 g/dl (12.0-15.5); LIPASE 43 U/L (12-53)
[2024-07-18 07:43] LABS: ETHYL ALCOHOL (ETHANOL) 0.083 % (0.000-0.010)
[2024-07-18 07:46] LABS: ALBUMIN 3.8 G/DL (3.2-5.2); ALKALINE PHOSPHATASE 94 U/L (35-104); ALT/SGPT 122 U/L (7.0-40); AST/SGOT 162 U/L (<34); BILIRUBIN,DIRECT 0.5 MG/DL (<0.4); BILIRUBIN,TOTAL 1.4 MG/DL (0.3-1.2); BLOOD UREA NITROGEN 13 MG/DL (9-23); CALCIUM LEVEL 10.2 MG/DL (8.5-10.1); CARBON DIOXIDE LEVEL 23 MMOL/L (20-31); CHLORIDE LEVEL 97 MMOL/L (98-107); CREATININE FOR GFR 0.48 MG/DL (0.55-1.30); GLOMERULAR FILTRATION RATE > 60.0 (>58); GLUCOSE, FASTING 116 MG/DL (60-100); POTASSIUM SERUM 4.1 MMOL/L (3.5-5.1); SODIUM LEVEL 136 MMOL/L (136-145); TOTAL PROTEIN 6.9 G/DL (5.7-8.2)
[2024-07-18] MEDS: ONDANSETRON 4MG 2ML VIAL IV ONE (11:23)
[2024-07-18] MEDS: NS (Normal Saline) 0.9% 1,000 ML IV ONE ×2 (11:23→16:02)
[2024-07-18] MEDS: LORazepam 2 MG/ML 1ML VIAL IV STA (11:23)
[2024-07-18] MEDS: PANTOPRAZOLE 40MG VIAL IV ONE (11:23)
[2024-07-18 12:08] LABS: CK-MB VALUE MASS 1.2 NG/ML (<3.6); ETHYL ALCOHOL (ETHANOL) < 0.003 % (0.000-0.010); MAGNESIUM LEVEL 1.7 MG/DL (1.8-2.4)
[2024-07-18 12:09] LABS: SALICYLATE LEVEL < 3.0 MG/DL (<30)
[2024-07-18 12:11] LABS: FREE T4 1.02 NG/DL (0.89-1.76)
[2024-07-18 12:17] LABS: CPK CREATINE PHOSPHOKINASE 164 U/L (34-145); MB/CK RELATIVE INDEX 0.73 (< OR =4)
[2024-07-18 12:21] LABS: HCG, SERUM QUALITATIVE NEGATIVE (NEGATIVE)
[2024-07-18] MEDS ORDERED: ISOVUE-370 76% 100ML VIAL As Ordered ONE (12:24)
[2024-07-18 12:42] LABS: AMPHETAMINES LEVEL URINE NEGATIVE (NEGATIVE); BARBITURATES URINE NEGATIVE (NEGATIVE); BENZODIAZEPINES URINE NEGATIVE (NEGATIVE); CANNABINOIDS URINE NEGATIVE (NEGATIVE); COCAINE METABOLITE URINE NEGATIVE (NEGATIVE); METHADONE URINE NEGATIVE (NEGATIVE); OPIATES URINE NEGATIVE (NEGATIVE); PHENCYCLIDINE URINE NEGATIVE (NEGATIVE)
[2024-07-18 13:33] LABS: CK-MB VALUE MASS < 1.0 NG/ML (<3.6); CPK CREATINE PHOSPHOKINASE 290 U/L (34-145); MB/CK RELATIVE INDEX 0.34 (< OR =4)
[2024-07-18] MEDS ORDERED: LABETALOL 100MG/20ML VIAL IV PRN (14:05)
[2024-07-18 14:20] LABS: PROTHROMBIN TIME 13.5 SECONDS (12.5-14.5)
[2024-07-18] MEDS ORDERED: GLUCOSE 4 GM CHEW PO PRN (14:45)
[2024-07-18] MEDS ORDERED: GLUCAGON INJ 1MG VIAL SC PRN (14:45)
[2024-07-18] MEDS ORDERED: ACETAMINOPHEN 325 MG TAB PO PRN (14:45)
[2024-07-18] MEDS ORDERED: MAALOX 30 ML SUSP *UDC PO PRN (14:45)
[2024-07-18] MEDS ORDERED: DEXTROSE 50% 50ML SYRINGE IV PRN (14:45)
[2024-07-18] MEDS ORDERED: MOM 30ML SUSPENSION UDC PO PRN (14:45)
[2024-07-18 15:26] VITALS: BP 144/103; TEMP 97.4; O2SAT 95
[2024-07-18 15:28] LABS: HEMOGLOBIN A1c 4.9 % (4.0-6.0)
[2024-07-18] MEDS: OXAZEPAM 15MG CAP PO SCH (16:01)
[2024-07-18] MEDS: MAG SULF 1GM/100ML (MAG RUN) 1 GM in IV 1 EA IV ONE (16:01)
[2024-07-18 16:05] VITALS: BP 144/103
[2024-07-18] MEDS ORDERED: SEMA1PEN2 INJ (16:45)
[2024-07-18] MEDS ORDERED: PROP20TA PO (16:45)
[2024-07-18] MEDS ORDERED: TOPI25TA10 PO (16:45)
[2024-07-18] MEDS ORDERED: GABA-1172 PO (16:45)
[2024-07-18] MEDS ORDERED: ZOLP10TA2 PO (16:45)
[2024-07-18] MEDS ORDERED: RIZA10TA58 PO (16:45)
[2024-07-18] MEDS ORDERED: ONDA-282 PO (16:45)
[2024-07-18] MEDS ORDERED: ALPR1TAB3 PO (16:45)
[2024-07-18] MEDS ORDERED: HOME MED LIST COMPLETE! XX SCH (16:50)
[2024-07-18] MEDS: MULTIVITAMIN -ADULT INJECTION 10 ML, THIAMINE INJection 100 MG, FOLIC ACID 1 MG in NS (... IV ONE (16:50)
[2024-07-18] MEDS: NS (Normal Saline) 0.9% 1,000 ML IV SCH (16:50)
[2024-07-18] MEDS: INSULIN LISPRO (NovoLOG) PER UNIT SC SCH ×2 (17:30→20:55)
[2024-07-18] MEDS: ENOXAPARIN 40MG/0.4ML SYRINGE (J1650 PER 10MG) SC SCH (18:07)
[2024-07-18 20:09] VITALS: BP 136/79; TEMP 97.5; O2SAT 97
[2024-07-18] MEDS: PENTOSAN POLYSULFATE SODIUM 100 MG CAP (ELMIRON) PO SCH (20:36)
[2024-07-18] MEDS: PANTOPRAZOLE 40MG VIAL IV SCH (20:37)
[2024-07-18] MEDS: TOPIRAMATE (TopAMAX) 25 MG TAB PO SCH (20:37)
[2024-07-18] MEDS: PROPRANOLOL 20 MG TAB PO SCH (20:37)
[2024-07-18] MEDS: GABAPENTIN 300 MG CAP PO SCH (20:37)
[2024-07-18] MEDS: THIAMINE 100 MG TAB PO SCH (20:37)
[2024-07-18] MEDS: LORazepam 2 MG TAB PO PRN (20:38)
[2024-07-18 22:41] VITALS: BP 136/84; TEMP 99; O2SAT 95
[2024-07-18 23:32] VITALS: BP 127/79; TEMP 98.8; O2SAT 95
[2024-07-19] VITALS (9 sets, daily range): BP systolic 109–136; BP diastolic 57–92; TEMP 97.2–98.5; O2SAT 95–100
[2024-07-19 05:51] LABS: HEMATOCRIT 39.1 % (36.0-47.0); HEMOGLOBIN 13.2 g/dl (12.0-15.5); MEAN CORPUSCULAR HEMOGLOBIN 29.2 pg (27.0-33.0); MEAN CORPUSCULAR HGB CONC 33.8 g/dl (32.0-36.5); MEAN CORPUSCULAR VOLUME 86.5 fl (80.0-96.0); PLATELET COUNT, AUTOMATED 172 10^3/uL (150-450); RED BLOOD COUNT 4.52 10^6/uL (4.00-5.40); WHITE BLOOD COUNT 7.3 10^3/uL (4.0-10.0)
[2024-07-19 06:23] LABS: ALBUMIN 3.3 G/DL (3.2-5.2); ALKALINE PHOSPHATASE 83 U/L (35-104); ALT/SGPT 93 U/L (7.0-40); AST/SGOT 79 U/L (<34); BILIRUBIN,TOTAL 1.1 MG/DL (0.3-1.2); BLOOD UREA NITROGEN 6 MG/DL (9-23); CALCIUM LEVEL 9.4 MG/DL (8.5-10.1); CARBON DIOXIDE LEVEL 25 MMOL/L (20-31); CHLORIDE LEVEL 103 MMOL/L (98-107); GLOMERULAR FILTRATION RATE > 60.0 (>58); GLUCOSE, FASTING 96 MG/DL (60-100); MAGNESIUM LEVEL 1.7 MG/DL (1.8-2.4); POTASSIUM SERUM 3.2 MMOL/L (3.5-5.1); SODIUM LEVEL 138 MMOL/L (136-145); TOTAL PROTEIN 6.2 G/DL (5.7-8.2)
[2024-07-19] MEDS: POTASSIUM CHLORIDE 10MEQ SR TABLET PO ONE (08:03)
[2024-07-19] MEDS: FOLIC ACID 1MG TAB PO SCH (08:03)
[2024-07-19] MEDS: MULTIVITAMINS/MINERALS THERAP 1 TAB PO SCH (08:04)
[2024-07-19] MEDS: MAG SULF 1GM/100ML (MAG RUN) 1 GM in IV 1 EA IV SCH (08:07)
[2024-07-19] MEDS: SUCRALFATE 1 GM TAB PO SCH (12:16)
[2024-07-19] MEDS: ONDANSETRON 4MG 2ML VIAL IV PRN (12:16)
[2024-07-19] MEDS: OXAZEPAM 15MG CAP PO SCH (17:15)
[2024-07-19] MEDS: zolPIDEM TARTRATE 5 MG TAB PO PRN (21:04)
[2024-07-20 04:30] VITALS: BP 117/68; TEMP 97; O2SAT 97
[2024-07-20 06:12] LABS: HEMATOCRIT 39.9 % (36.0-47.0); HEMOGLOBIN 13.1 g/dl (12.0-15.5); MEAN CORPUSCULAR HGB CONC 32.8 g/dl (32.0-36.5); MEAN CORPUSCULAR VOLUME 88.5 fl (80.0-96.0); PLATELET COUNT, AUTOMATED 146 10^3/uL (150-450); RED BLOOD COUNT 4.51 10^6/uL (4.00-5.40); WHITE BLOOD COUNT 6.4 10^3/uL (4.0-10.0)
[2024-07-20 06:34] LABS: ALBUMIN 3.1 G/DL (3.2-5.2); ALKALINE PHOSPHATASE 77 U/L (35-104); ALT/SGPT 82 U/L (7.0-40); AST/SGOT 61 U/L (<34); BILIRUBIN,TOTAL 0.7 MG/DL (0.3-1.2); BLOOD UREA NITROGEN 6 MG/DL (9-23); CALCIUM LEVEL 9.5 MG/DL (8.5-10.1); CARBON DIOXIDE LEVEL 27 MMOL/L (20-31); CHLORIDE LEVEL 105 MMOL/L (98-107); CREATININE FOR GFR 0.61 MG/DL (0.55-1.30); GLOMERULAR FILTRATION RATE > 60.0 (>58); GLUCOSE, FASTING 162 MG/DL (60-100); MAGNESIUM LEVEL 1.9 MG/DL (1.8-2.4); POTASSIUM SERUM 3.2 MMOL/L (3.5-5.1); SODIUM LEVEL 143 MMOL/L (136-145)
[2024-07-20] MEDS ORDERED: POTASSIUM CHLORIDE 10% LIQ 20MEQ/15ML UDC PO SCH (07:15)
[2024-07-20 08:00] VITALS: BP 110/80; TEMP 97.5; O2SAT 99
[2024-07-20] MEDS: POTASSIUM CHLORIDE 10MEQ SR TABLET PO ONE (09:08)
[2024-07-20] MEDS: PANTOPRAZOLE 40MG TAB (PROTONIX) PO SCH (09:09)
[2024-07-20] MEDS: KCL 10MEQ/100ML SWI (KRUN) 10 MEQ in IV 1 EA IV SCH (09:09)
[2024-07-20] MEDS ORDERED: SUCR1TA PO (09:18)
[2024-07-20] MEDS ORDERED: THIA100TA PO (09:18)
[2024-07-20] MEDS ORDERED: ALPR1TAB3 PO ×2 (09:18→10:14)
[2024-07-20] MEDS ORDERED: PANT40TA29 PO ×2 (09:18→10:12)
[2024-07-20] MEDS ORDERED: POTA10CA70 PO (09:18)
== END 2024-07-20 12:13 | disposition home or self-care (01) | DRG 898 ==
LOC: M ED 06:37 → M ED INP 13:59 → M PCU 15:16
PROVIDERS: ADMIT Internal Medicine; ATTEND Internal Medicine
DX: F10.231 Alcohol dependence with withdrawal delirium (principal); F10.251 Alcohol dependence with alcohol-induced psychotic disorder with hallucinations; F32.A Depression, unspecified; E11.9 Type 2 diabetes mellitus without complications; K21.9 Gastro-esophageal reflux disease without esophagitis; G43.909 Migraine, unspecified, not intractable, without status migrainosus; E87.6 Hypokalemia; F17.200 Nicotine dependence, unspecified, uncomplicated; E83.42 Hypomagnesemia; K29.20 Alcoholic gastritis without bleeding; I10 Essential (primary) hypertension; F41.9 Anxiety disorder, unspecified; K76.0 Fatty (change of) liver, not elsewhere classified; G62.9 Polyneuropathy, unspecified; Z79.899 Other long term (current) drug therapy; Z90.49 Acquired absence of other specified parts of digestive tract

== ENCOUNTER 2025-01-29 06:54 | Day surgery (SDC) | payer OTHER ==
[~2025-01-29] VITALS: Ht 152.4 cm; Wt 63.8 kg
[~2025-01-29 06:54] MED LIST changes: +ALPR1TAB3 PO; +GABA-1172 PO; +PANT40TA29 PO; +POTA10CA70 PO; +PROP20TA PO; +PROP40TA62 PO; +RIZA10TA58 PO; +ROSU10TA61 PO; +SEMA1PEN2 INJ; +THIA100TA PO; +TOPI-256 PO; +ZOLP10TA11 PO; -ZOLP5TAB PO; +ZOLP5TAB9 PO
[2025-01-29] MEDS ORDERED: LIDOCAINE 2% 100 MG/5 ML SDV (FOR ANES.) As Ordered ONE (07:20)
[2025-01-29] MEDS ORDERED: GLYCOPYRROLATE INJ 0.2 MG/ML 2 ML VIAL As Ordered ONE (07:20)
[2025-01-29] MEDS: ONDANSETRON 4MG 2ML VIAL IV STA (08:05)
[2025-01-29 08:35] VITALS: BP 132/75; O2SAT 99
== END 2025-01-29 08:40 | disposition home or self-care (01) ==
LOC: M OPP 06:54
PROVIDERS: ATTEND Internal Medicine Gastroenterology
DX: Z12.11 Encounter for screening for malignant neoplasm of colon (principal); K64.0 First degree hemorrhoids; R12 Heartburn; Z79.899 Other long term (current) drug therapy; F17.210 Nicotine dependence, cigarettes, uncomplicated
CPT/HCPCS: 43239; 45378; 88305; J1596; J2405

== ENCOUNTER 2025-04-11 17:13 | Emergency (ER) | payer OTHER ==
[~2025-04-11] VITALS: Ht 152.4 cm; Wt 67.5 kg
[~2025-04-11 17:13] MED LIST changes: -ROSU10TA61 PO; +ROSU10TA90 PO
[2025-04-11] MEDS: ACETAMINOPHEN 500 MG TAB PO ONE (18:06)
[2025-04-11 18:32] LABS: BASO # 0.1 10^3/uL (0.0-0.2); BASO % 1.0 % (0.0-1.0); EOS # 0.6 10^3/uL (0.0-0.5); EOS % 6.0 % (0.0-3.0); LYMPH # 3.0 10^3/uL (1.5-5.0); LYMPH % 33.0 % (24.0-44.0); MONO # 0.8 10^3/uL (0.0-0.8); MONO % 8.7 % (2.0-8.0); NEUTROPHILS # 4.7 10^3/uL (1.5-8.5); NEUTROPHILS % 51.2 % (36.0-66.0); PLATELET COUNT, AUTOMATED 257 10^3/uL (150-450)
[2025-04-11 18:57] VITALS: TEMP 101.1
[2025-04-11 19:03] VITALS: BP 118/58; O2SAT 98
[2025-04-11 19:03] LABS: C REACTIVE PROTEIN QUANTITATIV 0.66 MG/DL (<1.0); CALCIUM LEVEL 10.0 MG/DL (8.5-10.1); CARBON DIOXIDE LEVEL 27.0 MMOL/L (20-31); CHLORIDE LEVEL 108.0 MMOL/L (98-107); CREATININE FOR GFR 0.95 MG/DL (0.55-1.30); GLOMERULAR FILTRATION RATE 73.9 (>58); POTASSIUM SERUM 4.2 MMOL/L (3.5-5.1); SODIUM LEVEL 143.0 MMOL/L (136-145)
== END 2025-04-11 19:04 | disposition home or self-care (01) ==
LOC: M ED 17:13
DX: B34.9 Viral infection, unspecified (principal); S80.01XA Contusion of right knee, initial encounter; W19.XXXA Unspecified fall, initial encounter; Y92.39 Other specified sports and athletic area as the place of occurrence of the external cause; Y93.89 Activity, other specified; Y99.9 Unspecified external cause status; I10 Essential (primary) hypertension; K21.9 Gastro-esophageal reflux disease without esophagitis; F17.200 Nicotine dependence, unspecified, uncomplicated; Z79.899 Other long term (current) drug therapy